=== PATIENT | male | born 1970 | race Caucasian/White ===

== ENCOUNTER 2017-03-11 22:28 | Emergency (ER) | payer SELFPAY ==
[~2017-03-11] VITALS: Ht 1193 cm; Wt 119.7 kg
[~2017-03-11 22:28] MED LIST: BACTRIM DS 8001 TA1 PO; CLEOCIN150 MG PO; CLINDAMYCIN150 MG PO; Diabeta,Micron2.5 MG PO; FLEXERIL10 MG PO; METFORMIN HYDR500 M1 PO; MOTRIN800 MG PO; NKHM; PHENERGAN25 M1 PO; PREDNICOT20 MG PO; ROBITUSSIN AC 110 ML PO; TRAMADOL HCL50 MG PO; VICODIN ES 7501 TAB PO
[2017-03-11] MEDS ORDERED: JANUVIA100 MG PO (22:42)
[2017-03-11] MEDS ORDERED: ATORVASTATIN CA10 M1 PO (22:43)
[2017-03-11] MEDS ORDERED: LISINOPRIL2.5 MG PO (22:43)
[2017-03-11 23:03] LABS: BASO # 0.1 10*3/uL (0.0-0.1); BASO % 0.4 % (0.0-1.0); EOS # 0.2 10*3/uL (0.0-0.4); EOS % 1.2 % (1.0-4.0); HEMATOCRIT 41.5 % (42.0-52.0); HEMOGLOBIN 14.6 g/dl (14.0-18.0); IG # 0.1 10*3/uL (0.0-0.1); LYMPH # 3.7 10*3/uL (1.3-4.4); LYMPH % 28.7 % (27.0-41.0); MEAN CELL VOLUME 88.1 fl (80.0-94.0); MEAN CORPUSCULAR HGB CONC 35.2 g/dl (33.0-37.0); MEAN PLATELET VOLUME 10.7 fl (9.6-12.3); MONO % 7.4 % (3.0-9.0); NEUT % 61.8 % (47.0-73.0); PLATELET COUNT AUTOMATED 271 10*3/uL (130-400); RED BLOOD COUNT 4.71 10*6/uL (4.50-5.90); RED CELL DISTRI WIDTH 12.6 % (0-14.5); WHITE BLOOD COUNT 12.9 10*3/uL (4.8-10.8)
[2017-03-11 23:18] LABS: ALKALINE PHOSPHATASE 65 U/L (45-117); BILIRUBIN, TOTAL 0.4 mg/dl (0.2-1.0); BUN 15 mg/dl (7-24); CARBON DIOXIDE 30 mmol/L (21-32); CHLORIDE 97 mmol/L (98-107); EST GLOM FILT AFRICAN AMERICAN > 60 ml/min; GLUCOSE 296 mg/dL (65-99); POTASSIUM 4.3 mmol/L (3.5-5.1); SGOT/AST 24 IU/L (3-35); SGPT/ALT 53 U/L (12-78); SODIUM 139 mmol/L (136-145); TOTAL PROTEIN 7.8 gm/dL (6.4-8.2)
[2017-03-11 23:22] LABS: BILIRUBIN NEGATIVE (NEGATIVE); BLOOD NEGATIVE (NEGATIVE); CLARITY CLEAR (CLEAR); COLOR YELLOW (YELLOW); GLUCOSE 3+ (NEGATIVE); KETONE NEGATIVE (NEGATIVE); LEUKO ESTERASE NEGATIVE (NEGATIVE); NITRITE NEGATIVE (NEGATIVE); PROTEIN NEGATIVE (NEGATIVE); UROBILINOGEN 0.2 E.U./dl (0.2-1.0)
[2017-03-11 23:30] LABS: WBC 0-2 wbc/hpf (0-5)
[2017-03-12] MEDS ORDERED: CIPRO250 MG PO (00:25)
== END 2017-03-12 00:48 | disposition home or self-care (01) ==
LOC: ED 22:28
PROVIDERS: Nurse Practitioner Family
DX: N12 Tubulo-interstitial nephritis, not specified as acute or chronic (principal); Z88.0 Allergy status to penicillin; Z79.899 Other long term (current) drug therapy

== ENCOUNTER 2018-06-29 08:40 | Emergency (ER) | payer OTHER ==
[~2018-06-29] VITALS: Ht 177.8 cm; Wt 122.5 kg
[~2018-06-29 08:40] MED LIST changes: +ATORVASTATIN CA10 M1 PO; +CIPRO250 MG PO; +JANUVIA100 MG PO; +LISINOPRIL2.5 MG PO
[2018-06-29] MEDS ORDERED: CHLORZOXAZONE500 M2 PO (09:10)
[2018-06-29] MEDS ORDERED: NAPROSYN500 MG PO (09:10)
== END 2018-06-29 10:36 | disposition home or self-care (01) ==
LOC: ED 08:40
DX: M54.6 Pain in thoracic spine (principal); R03.0 Elevated blood-pressure reading, without diagnosis of hypertension; E11.9 Type 2 diabetes mellitus without complications; Z88.0 Allergy status to penicillin; Z79.84 Long term (current) use of oral hypoglycemic drugs; Z79.899 Other long term (current) drug therapy

== ENCOUNTER 2018-11-08 13:35 | Emergency (ER) | payer OTHER ==
[~2018-11-08] VITALS: Ht 177.8 cm; Wt 113.9 kg
--- NOTE | ~2018-11-08 | EKG ---
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
[~2018-11-08 13:35] MED LIST changes: +CHLORZOXAZONE500 M2 PO; +NAPROSYN500 MG PO
[2018-11-08 14:58] LABS: BASO % 0.3 % (0.0-1.0); EOS # 0.2 10*3/uL (0.0-0.4); EOS % 1.6 % (1.0-4.0); HEMATOCRIT 42.8 % (42.0-52.0); HEMOGLOBIN 14.7 g/dl (14.0-18.0); LYMPH # 2.4 10*3/uL (1.3-4.4); LYMPH % 24.6 % (27.0-41.0); MEAN CELL VOLUME 89.4 fl (80.0-94.0); MEAN CORPUSCULAR HGB 30.7 pg (27.0-31.0); MEAN CORPUSCULAR HGB CONC 34.3 g/dl (33.0-37.0); MEAN PLATELET VOLUME 10.5 fl (9.6-12.3); MONO # 0.9 10*3/uL (0.1-1.0); MONO % 8.9 % (3.0-9.0); NEUT # 6.2 10*3/uL (2.3-7.9); NEUT % 64.2 % (47.0-73.0); PLATELET COUNT AUTOMATED 308 10*3/uL (130-400); RED BLOOD COUNT 4.79 10*6/uL (4.50-5.90); RED CELL DISTRI WIDTH 12.7 % (0-14.5); WHITE BLOOD COUNT 9.6 10*3/uL (4.8-10.8)
[2018-11-08 15:07] LABS: ACT PARTIAL THROMBO TIME 21.7 SECONDS (20.8-31.5); INTERNATIONAL NORM RATIO 0.9 (2.0-3.5)
[2018-11-08 15:21] LABS: ALBUMIN 3.8 gm/dl (3.1-4.5); ALKALINE PHOSPHATASE 67 U/L (45-117); BUN 11 mg/dl (7-24); CHLORIDE 104 mmol/L (98-107); CREATININE 0.81 mg/dL (0.70-1.30); LIPASE 199 U/L (73-393); POTASSIUM 4.3 mmol/L (3.5-5.1); SGOT/AST 22 IU/L (3-35); SGPT/ALT 36 U/L (12-78); SODIUM 137 mmol/L (136-145); TOTAL PROTEIN 7.9 gm/dL (6.4-8.2)
[2018-11-08 15:23] LABS: TROPONIN I < 0.015 ng/ml (<0.045)
[2018-11-08 16:06] LABS: BILIRUBIN NEGATIVE (NEGATIVE); BLOOD NEGATIVE (NEGATIVE); CLARITY CLEAR (CLEAR); COLOR YELLOW (YELLOW); GLUCOSE NEGATIVE (NEGATIVE); KETONE NEGATIVE (NEGATIVE); LEUKO ESTERASE NEGATIVE (NEGATIVE); NITRITE NEGATIVE (NEGATIVE); UROBILINOGEN 0.2 E.U./dl (0.2-1.0)
[2018-11-08 16:11] LABS: EPITHELIAL CELLS 0-2; WBC 0-2 wbc/hpf (0-5)
[2018-11-19] MEDS ORDERED: NORCO 5-325 TA1 EACH PO (12:12)
[2018-12-13] MEDS ORDERED: PHENERGAN25 M3 PO (12:20)
== END 2018-11-08 16:18 | disposition home or self-care (01) ==
LOC: ED 13:35
PROVIDERS: Nurse Practitioner Family
DX: K80.50 Calculus of bile duct without cholangitis or cholecystitis without obstruction (principal); Z88.0 Allergy status to penicillin; Z79.899 Other long term (current) drug therapy; Z87.19 Personal history of other diseases of the digestive system

== ENCOUNTER → 2018-11-19 | Day surgery (SDC) | payer OTHER ==
[2018-11-16 13:35] VITALS: BP 117/79
[2018-11-16 14:27] LABS: BASO % 0.4 % (0.0-1.0); EOS # 0.2 10*3/uL (0.0-0.4); EOS % 1.9 % (1.0-4.0); HEMATOCRIT 42.6 % (42.0-52.0); HEMOGLOBIN 14.2 g/dl (14.0-18.0); LYMPH # 2.8 10*3/uL (1.3-4.4); LYMPH % 26.5 % (27.0-41.0); MEAN CELL VOLUME 89.9 fl (80.0-94.0); MEAN CORPUSCULAR HGB CONC 33.3 g/dl (33.0-37.0); MEAN PLATELET VOLUME 10.6 fl (9.6-12.3); MONO # 0.9 10*3/uL (0.1-1.0); MONO % 8.9 % (3.0-9.0); NEUT # 6.5 10*3/uL (2.3-7.9); PLATELET COUNT AUTOMATED 304 10*3/uL (130-400); RED BLOOD COUNT 4.74 10*6/uL (4.50-5.90); RED CELL DISTRI WIDTH 12.6 % (0-14.5); WHITE BLOOD COUNT 10.5 10*3/uL (4.8-10.8)
[2018-11-16 14:38] LABS: ACT PARTIAL THROMBO TIME 21.5 SECONDS (20.8-31.5); INTERNATIONAL NORM RATIO 0.9 (2.0-3.5)
[2018-11-16 14:49] LABS: BUN 12 mg/dl (7-24); CHLORIDE 102 mmol/L (98-107); CREATININE 0.76 mg/dL (0.70-1.30); POTASSIUM 4.2 mmol/L (3.5-5.1); SODIUM 136 mmol/L (136-145)
[~2018-11-19] VITALS: Ht 177.8 cm; Wt 115.7 kg
[2018-11-19] VITALS (10 sets, daily range): BP systolic 85–133; BP diastolic 32–84
[~2018-11-19] MED LIST changes: +NORCO 5-325 TA1 EACH PO; +PHENERGAN25 M3 PO
--- NOTE | ~2018-11-19 | O ---
[place], [place] OPERATIVE NOTE [id number] UNIT #: [id number] ROOM: DOCTOR: JOSE SOL MD BIRTHDATE: [birth year] DOS: 11/19/2018 PREOPERATIVE DIAGNOSIS: Chronic cholecystitis. POSTOPERATIVE DIAGNOSIS: Chronic cholecystitis. PROCEDURE: Laparoscopic cholecystectomy. SURGEON: Jose Sol MD FLOOR REFINISHER: RAD. ANESTHESIA: General with endotracheal intubation. INDICATIONS: This is a 48-year-old gentleman with a history of chronic cholecystitis, which is symptomatic, who is here for the above-mentioned procedure. The procedure and its complications were explained to the patient in detail preoperatively. Complications that were discussed included but were not limited to bleeding, infection, hematoma/seroma/abscess formation, biloma formation, prolonged postoperative pain, damage to lying vital structures, inadvertent injury to common bile duct, and incisional hernia formation. He agreed to proceed. DESCRIPTION OF PROCEDURE: After identifying the patient, the patient was brought to the operating suite and laid in the supine position. After induction of general anesthesia, timeout procedure was called and the parts were then painted and draped in the usual sterile fashion. An incision below the umbilicus was made. The skin and the subcutaneous tissue were incised in the line of the incision. The fascia was incised and two stay sutures on either side were taken with the help of 0 Vicryl. A 12 mm Nina port was introduced and a pneumoperitoneum was created. Under direct vision, an epigastric incision of 10 mm and two 5 mm incisions were made in the right upper quadrant and appropriate size ports were introduced. The gallbladder was retracted superiorly and laterally. The cystic duct and the cystic artery were carefully dissected until the critical view of safety was obtained and the triangle of Calot was identified. Thereafter, each of these structures were cut between the first and the second clip and that the gallbladder was removed from the bed of the gallbladder with the help of electrocautery. It was placed in an EndoCatch bag and removed from the peritoneal cavity and sent for histopathological diagnosis. Hemostasis was achieved in the liver bed with the help of electrocautery. Thereafter, saline was used for irrigation. After hemostasis was confirmed, the irrigation fluid was sucked away. The right upper quadrant and epigastric ports were then removed and there was no bleeding seen. The umbilical port was also removed and the pneumoperitoneum was decompressed. The two stay sutures were tied together and the edges of the skin were infiltrated with 1% plain lidocaine. Thereafter, each of the skin incisions approximated with the help of 4-0 Vicryl and dressing was placed. The patient was extubated uneventfully and brought back to the recovery in a stable fashion. There were no complications. Dr. Jose Sol, the attending surgeon, was present throughout the operating case. [place], [place] OPERATIVE NOTE NAME: CEASAR MARINA UNIT #: [id number] ROOM: DOCTOR: JOSE SOL MD BIRTHDATE: [birth year] Jose Sol MD CM:OPRECORD:OPERATIVE NOTE [id number] JOSE SOL MD 11/19/18 1252 interface
== END | disposition home or self-care (01) ==
LOC: SDC 11-16 13:15
PROVIDERS: Surgery
DX: K80.10 Calculus of gallbladder with chronic cholecystitis without obstruction (principal); E11.9 Type 2 diabetes mellitus without complications; I10 Essential (primary) hypertension; J45.909 Unspecified asthma, uncomplicated; Z72.89 Other problems related to lifestyle; Z88.0 Allergy status to penicillin; Z83.3 Family history of diabetes mellitus; Z79.899 Other long term (current) drug therapy

== ENCOUNTER 2019-12-29 12:03 | Emergency (ER) | payer OTHER ==
[~2019-12-29] VITALS: Ht 177.8 cm; Wt 112.9 kg
[2019-12-29] MEDS ORDERED: METHOCARBAMOL500 M1 PO (14:10)
[2019-12-29] MEDS ORDERED: Motrin,Rufen800 MG PO (14:10)
== END 2019-12-29 14:10 | disposition home or self-care (01) ==
LOC: ED 12:03
DX: S29.012A Strain of muscle and tendon of back wall of thorax, initial encounter (principal); Z88.0 Allergy status to penicillin; Z79.899 Other long term (current) drug therapy; Z90.49 Acquired absence of other specified parts of digestive tract; X50.0XXA Overexertion from strenuous movement or load, initial encounter; Y93.89 Activity, other specified; Y92.89 Other specified places as the place of occurrence of the external cause; Y99.8 Other external cause status

== ENCOUNTER → 2020-07-31 | Outpatient (CLI) | payer OTHER ==
[~2020-07-31] MED LIST changes: +METHOCARBAMOL500 M1 PO; +Motrin,Rufen800 MG PO
== END | disposition home or self-care (01) ==
LOC: COVID19 09:23
PROVIDERS: ATTEND Internal Medicine
DX: Z20.828 Contact with and (suspected) exposure to other viral communicable diseases (principal)

== ENCOUNTER → 2020-08-18 | Outpatient (CLI) | payer OTHER | END | disposition home or self-care (01) | LOC: RAD 16:08 | PROVIDERS: ATTEND Internal Medicine | DX: Q76.6 Other congenital malformations of ribs (principal) ==

== ENCOUNTER → 2020-08-27 | Outpatient (CLI) | payer OTHER | END | disposition home or self-care (01) | LOC: CT 13:56 | PROVIDERS: ATTEND Internal Medicine | DX: M95.4 Acquired deformity of chest and rib (principal) ==

== ENCOUNTER 2021-12-11 14:12 | Emergency (ER) | payer BC ==
[~2021-12-11] VITALS: Ht 177.8 cm; Wt 108.9 kg
[2021-12-11 15:08] LABS: BILIRUBIN Negative (Negative); BLOOD Negative (Negative); CLARITY Clear (Clear); COLOR Yellow (Yellow); GLUCOSE Negative (Negative); KETONE Negative (Negative); LEUKO ESTERASE Negative (Negative); NITRITE Negative (Negative); SPECIFIC GRAVITY 1.015 (1.001-1.030); UROBILINOGEN 0.2 E.U./dl (0.0-1.0)
[2021-12-11 15:14] LABS: BACTERIA TRACE
[2021-12-11] MEDS ORDERED: NAPROSYN500 MG PO (15:24)
== END 2021-12-11 16:01 | disposition home or self-care (01) ==
LOC: ED 14:12
PROVIDERS: Student in an Organized Health Care Education/Training Program
DX: M54.50 Low back pain, unspecified (principal); Z88.0 Allergy status to penicillin; Z79.899 Other long term (current) drug therapy; Z90.49 Acquired absence of other specified parts of digestive tract

== ENCOUNTER 2022-08-09 12:04 | Emergency (ER) | payer BC ==
[~2022-08-09] VITALS: Ht 180.3 cm; Wt 116.1 kg
[2022-08-09] MEDS ORDERED: SEPTDS PO (18:05)
== END 2022-08-09 18:37 | disposition home or self-care (01) ==
LOC: ED 12:04
DX: S90.852A Superficial foreign body, left foot, initial encounter (principal); Z88.0 Allergy status to penicillin; Z79.899 Other long term (current) drug therapy; Z90.49 Acquired absence of other specified parts of digestive tract; W22.8XXA Striking against or struck by other objects, initial encounter; Y93.89 Activity, other specified; Y92.89 Other specified places as the place of occurrence of the external cause; Y99.8 Other external cause status

== ENCOUNTER → 2023-08-23 | Day surgery (SDC) | payer BC ==
[~2023-08-23] MED LIST changes: +GLIPIZIDE10 M2 PO; +METFORMIN HYD1000 MG PO; -METFORMIN HYDR500 M1 PO; +OZEMPIC0.25 MG/03 SQ; +SEPTDS PO
[2023-08-23 10:20] VITALS: BP 136/73
[2023-08-23 11:20] VITALS: BP 108/76
[2023-08-23 11:35] VITALS: BP 116/79
[2023-08-23 11:50] VITALS: BP 120/75
== END | disposition home or self-care (01) ==
LOC: SDC 08-18 11:00
PROVIDERS: ATTEND Surgery
DX: Z12.11 Encounter for screening for malignant neoplasm of colon (principal)

== ENCOUNTER → 2023-11-14 | Outpatient (CLI) | payer BC | END | disposition home or self-care (01) | LOC: RAD 11:17 | PROVIDERS: ATTEND Nurse Practitioner Family | DX: M25.552 Pain in left hip (principal) ==

== ENCOUNTER → 2024-02-01 | Outpatient (CLI) | payer BC | END | disposition home or self-care (01) | LOC: RAD 10:11 | PROVIDERS: ATTEND Nurse Practitioner Primary Care | DX: M48.061 Spinal stenosis, lumbar region without neurogenic claudication (principal); M43.8X6 Other specified deforming dorsopathies, lumbar region ==

== ENCOUNTER → 2024-07-30 | Outpatient (CLI) | payer BC ==
[2024-07-30 10:25] LABS: BASO % 0.3 % (0.0-1.0); EOS # 0.1 10*3/uL (0.0-0.4); EOS % 1.8 % (1.0-4.0); HEMATOCRIT 45.7 % (42.0-52.0); MEAN CELL VOLUME 92.5 fl (80.0-94.0); MEAN CORPUSCULAR HGB 30.4 pg (27.0-31.0); MEAN CORPUSCULAR HGB CONC 32.8 g/dl (33.0-37.0); MEAN PLATELET VOLUME 9.9 fl (9.6-12.3); MONO # 0.7 10*3/uL (0.1-1.0); MONO % 9.2 % (3.0-9.0); NEUT # 4.1 10*3/uL (2.3-7.9); NEUT % 55.2 % (47.0-73.0); PLATELET COUNT AUTOMATED 319 10*3/uL (130-400); RED BLOOD COUNT 4.94 10*6/uL (4.50-5.90); RED CELL DISTRI WIDTH 12.5 % (0-14.5); WHITE BLOOD COUNT 7.4 10*3/uL (4.8-10.8)
== END | disposition home or self-care (01) ==
LOC: LAB 10:10
PROVIDERS: ATTEND Nurse Practitioner Primary Care
DX: I10 Essential (primary) hypertension (principal); E11.65 Type 2 diabetes mellitus with hyperglycemia

== ENCOUNTER → 2025-03-10 | Outpatient (CLI) | payer BC | END | disposition home or self-care (01) | LOC: RAD 07:44 | PROVIDERS: ATTEND Nurse Practitioner Family | DX: M16.0 Bilateral primary osteoarthritis of hip (principal); M25.752 Osteophyte, left hip; M25.751 Osteophyte, right hip; M25.551 Pain in right hip; M47.819 Spondylosis without myelopathy or radiculopathy, site unspecified ==